=== PATIENT | female | born 1960 | race Two or more races ===

== ENCOUNTER 2022-08-07 18:46 | Emergency (ER) | payer MEDICAID ==
[~2022-08-07] VITALS: Ht 160 cm; Wt 84.0 kg
[2022-08-07 19:33] LABS: Basophils # (auto) 0.1 10 ^3/uL (0-0.2); Eosinophils # (auto) 0.1 10 ^3/uL (0-0.8); Eosinophils % (auto) 1.4 % (0.0-7.0); Lymphocytes # (auto) 2.4 10 ^3/uL (0.4-5.4); Lymphocytes % (auto) 24.4 % (10.0-50.0); Mean Corpuscular Hemoglobin 27.4 pg (28.0-32.0); Mean Corpuscular Hgb Conc. 33.2 g/dL (32.0-36.0); Mean Corpuscular Volume 82.5 fL (80.0-100.0); Monocytes # (auto) 0.6 10 ^3/uL (0-1.3); Neutrophils # (auto) 6.7 10 ^3/uL (1.6-8.6); Neutrophils % (auto) 67.2 % (37.0-80.0); Red Blood Cells 4.73 10^6/uL (4.0-5.20); Red Cell Distribution Width 14.7 % (11.8-14.3)
[2022-08-07 19:51] LABS: Calcium 8.8 mg/dL (8.5-10.1); Potassium 3.6 mmol/L (3.5-5.1)
[2022-08-07 19:55] LABS: Bilirubin, Total 0.3 mg/dL (0.2-1.0); Total Protein 7.4 g/dL (6.4-8.2)
[2022-08-07 20:26] LABS: Urine Bacteria NONE SEEN /hpf (None Seen); Urine Blood TRACE /uL (Negative); Urine Mucus FEW (None Seen); Urine Specific Gravity 1.007 (1.001-1.035); Urine WBC <1 /hpf (0 - 5)
[2022-08-07] MEDS ORDERED: BACL10TA PO (22:38)
[2022-08-07] MEDS ORDERED: IBUP-1454 PO (22:38)
[2022-08-07 23:17] VITALS: BP 105/53
== END 2022-08-07 23:22 | disposition home or self-care (01) ==
LOC: ER 18:50
DX: R07.89 Other chest pain (principal); M62.838 Other muscle spasm
CPT/HCPCS: 36415; 71045; 80053; 81001; 83605; 83690; 84484; 85025; 85379; 93005; 93970

== ENCOUNTER 2022-11-01 23:58 | Emergency (ER) | payer MEDICAID ==
[~2022-11-01] VITALS: Ht 160 cm; Wt 78.0 kg
[~2022-11-01 23:58] MED LIST: BACL10TA PO; IBUP-1454 PO
[2022-11-02 00:05] VITALS: BP 137/80; RESP 18; O2SAT 97
[2022-11-02 00:42] LABS: Basophils # (auto) 0.1 10 ^3/uL (0-0.2); Basophils % (auto) 1.3 % (0.0-2.0); Eosinophils # (auto) 0 10 ^3/uL (0-0.8); Eosinophils % (auto) 0.1 % (0.0-7.0); Hematocrit 37.5 % (36.0-46.0); Hemoglobin 12.3 g/dL (12.2-16.2); Lymphocytes # (auto) 1.2 10 ^3/uL (0.4-5.4); Lymphocytes % (auto) 26.5 % (10.0-50.0); Mean Corpuscular Hgb Conc. 32.7 g/dL (32.0-36.0); Mean Corpuscular Volume 82.6 fL (80.0-100.0); Monocytes # (auto) 0.6 10 ^3/uL (0-1.3); Monocytes % (auto) 13.8 % (0.0-12.0); Neutrophils # (auto) 2.6 10 ^3/uL (1.6-8.6); Neutrophils % (auto) 58.3 % (37.0-80.0); Nucleated Red Blood Cells % 0.1 %; Red Blood Cells 4.54 10^6/uL (4.0-5.20); Red Cell Distribution Width 14.9 % (11.8-14.3); White Blood Cell 4.4 10^3/uL (4.4-10.8)
[2022-11-02 00:47] VITALS: PULSE 77
[2022-11-02 00:57] LABS: Alanine Aminotransferase 12 U/L (7-40); Albumin 4.6 g/dL (3.2-4.8); Alkaline Phosphatase 73 U/L (46-116); Aspartate Aminotransferase 19 U/L (13-40); BUN/Creatinine Ratio 10.8 (10.0-20.0); Blood Urea Nitrogen 7 mg/dL (9-23); Calcium 9.3 mg/dL (8.7-10.4); Chloride 95 mmol/L (98-107); Glucose 106 mg/dL (74-106); Magnesium 1.6 mg/dL (1.6-2.6); Potassium 3.5 mmol/L (3.5-5.1); Sodium 127 mmol/L (136-145)
[2022-11-02 00:58] LABS: Bilirubin, Total 0.5 mg/dL (0.2-1.0); Total Protein 7.4 g/dL (5.7-8.2)
[2022-11-02 01:45] LABS: COVID19 ANTIGEN SOFIA FIA POSITIVE (NEGATIVE)
== END 2022-11-02 04:14 | disposition home or self-care (01) ==
LOC: ER 23:58
DX: U07.1 COVID-19 (principal); R06.02 Shortness of breath; Z79.899 Other long term (current) drug therapy
CPT/HCPCS: 36415; 71046; 80053; 83735; 83880; 84484; 85025; 87426; 93005

== ENCOUNTER 2022-12-27 17:21 | Emergency (ER) | payer MEDICAID ==
[~2022-12-27] VITALS: Ht 160 cm; Wt 80.5 kg
[2022-12-27 18:50] LABS: Urine Bacteria FEW /hpf (None Seen); Urine Blood Negative /uL (Negative); Urine Clarity Clear (Clear); Urine Color Colorless (Yellow); Urine Protein, UAD Negative (Negative); Urine Specific Gravity 1.006 (1.001-1.035); Urine Urobilinogen Normal (Negative); Urine WBC 5 /hpf (0 - 5)
[2022-12-27 18:52] LABS: Basophils # (auto) 0.1 10 ^3/uL (0-0.2); Basophils % (auto) 0.8 % (0.0-2.0); Eosinophils # (auto) 0.2 10 ^3/uL (0-0.8); Eosinophils % (auto) 2.5 % (0.0-7.0); Hemoglobin 13.3 g/dL (12.2-16.2); Lymphocytes # (auto) 2.9 10 ^3/uL (0.4-5.4); Lymphocytes % (auto) 34.3 % (10.0-50.0); Mean Corpuscular Hemoglobin 27.4 pg (28.0-32.0); Mean Corpuscular Hgb Conc. 32.4 g/dL (32.0-36.0); Mean Corpuscular Volume 84.5 fL (80.0-100.0); Monocytes # (auto) 0.6 10 ^3/uL (0-1.3); Monocytes % (auto) 6.7 % (0.0-12.0); Neutrophils # (auto) 4.8 10 ^3/uL (1.6-8.6); Neutrophils % (auto) 55.7 % (37.0-80.0); Nucleated Red Blood Cells % 0.1 %; Red Blood Cells 4.85 10^6/uL (4.0-5.20); Red Cell Distribution Width 15.3 % (11.8-14.3); White Blood Cell 8.6 10^3/uL (4.4-10.8)
[2022-12-27 19:07] LABS: Alanine Aminotransferase 12 U/L (7-40); Albumin 4.5 g/dL (3.2-4.8); Alkaline Phosphatase 89 U/L (46-116); Anion Gap 8 (5-15); Aspartate Aminotransferase 10 U/L (13-40); BUN/Creatinine Ratio 19.7 (10.0-20.0); Blood Urea Nitrogen 13 mg/dL (9-23); Carbon Dioxide 26 mmol/L (20-30); Chloride 104 mmol/L (98-107); Glucose 83 mg/dL (74-106); Potassium 4.2 mmol/L (3.5-5.1); Sodium 138 mmol/L (136-145)
[2022-12-27 19:08] LABS: Bilirubin, Total 0.5 mg/dL (0.2-1.0); Total Protein 7.2 g/dL (5.7-8.2)
[2022-12-27 19:22] LABS: Lipase 50 U/L (12-53)
[2022-12-27] MEDS ORDERED: cefTRIAXone 1GM/50ML D5W 50 ML IV ONE (20:15)
[2022-12-27 21:20] VITALS: BP 113/71; PULSE 80; RESP 18; TEMP 98.1; O2SAT 98
[2022-12-27] MEDS ORDERED: NITR-87 PO (21:46)
== END 2022-12-27 22:05 | disposition home or self-care (01) ==
LOC: ER 17:21
DX: N39.0 Urinary tract infection, site not specified (principal); R10.30 Lower abdominal pain, unspecified; I10 Essential (primary) hypertension; E78.5 Hyperlipidemia, unspecified; Z98.890 Other specified postprocedural states; Z79.1 Long term (current) use of non-steroidal anti-inflammatories (NSAID); Z79.899 Other long term (current) drug therapy
CPT/HCPCS: 36415; 74176; 80053; 81001; 82962; 83605; 83690; 84484; 85025; 93005; 96365; 99285; J0696

== ENCOUNTER 2025-02-19 21:54 | Emergency (ER) | payer MEDICAID ==
[~2025-02-19] VITALS: Ht 160 cm; Wt 81.7 kg
[~2025-02-19 21:54] MED LIST changes: +NITR-87 PO
--- NOTE | 2025-02-19 22:22 | ED.PDOC ---
Musculoskeletal HPI Comments 64y F who presents to the ED for chief complaint of right lower extremity pain - pt states she has been having R knee pain and has varicose veins by the R knee - pt states she started to have pain and skin discoloration by her R knee earlier this afternoon at approx 1300 - pt states she was at urgent care today and referred to the ED to rule out DVT - pt in the ED, denies chest pain, shortness of breath, fever, chills, or any associated symptoms - pt otherwise has history of lymphedema and phlebitis - pt otherwise has stable vitals in the ED past medical history: LYMPHEDEMA, VARICOSE VEINS, PHLEBITIS past surgical history: denies medications: denies allergies: denies social history: denies ETOH use, denies drug use, denies tobacco use HPI: Poor Historian. REVIEW OF SYSTEMS: CONSTITUTIONAL: Denies acute: fever, diaphoresis, chills, generalized weakness. HEAD: Denies acute: headache, photophobia Eyes: Denies acute: Double vision, vision loss, eye pain, eye discharge. EARS: Denies acute: tinnitus, hearing loss, ear discharge, ear pain, THROAT: Denies acute: sore throat, swelling, difficulty swallowing , pain with swallowing, change in voice. NECK: Denies acute: neck pain, neck swelling, stiff neck. HEART: Denies acute : chest pain, palpitations, LUNGS: Denies acute: SOB, wheezing, cough, hemoptysis ABDOMEN: Denies acute: abdominal pain, Nausea, Vomiting, diarrhea, melena , hematemesis, hematochezia SKIN: Denies acute: rash, redness, lesions, itchiness. EXTREMITIES: Denies acute: calf pain, numbness, tingling, weakness, Denies acute: Low back pain. Neuro: Denies acute: focal neurological deficit, motor or sensory focal neurological deficit, tremors, seizure like activity, confusion, dizziness, change in mental status, loss of bowel or bladder function, cauda equina like symptoms. : Denies acute: dysuria, hematuria, flank pain, increase in urinary frequency. PSYCH: Denies acute: hallucination, suicidal ideation, homicidal ideation. FEMALE: Denies acute: abnormal vaginal bleeding, foul odor, unusual discharge. PHYSICAL EXAM: General: ----no----acute distress, awake and alert. Head: normocephalic, atraumatic. No raccoon's eyes, no frederick sign. Neck: supple, trachea is midline, no swelling. Throat: Normal phonation. Eyes:, no erythema, no purulent discharge, no proptosis, no icterus. Heart: regular rate, regular rhythm, no significant murmur appreciated. Lungs: no apparent respiratory distress, Able to speak in full sentences. No wheezing, no rhonchi, no crackles. No stridors Clear to auscultation bilaterally. Abdomen: non tender to palpation, non distended, soft, no guarding, no rebound, + bowel sounds. Neuro: Awake, Alert, oriented to name, self, situation, follows commands GCS=15. Speech is normal. Skin: no petechia, no purpura, no cyanosis, non-pale, not jaundice. Lower extremities: --no - Pitting edema no deformity, no focal swelling, no calf TTP. Noted bilateral varicose veins. Evaluation of the area of complaint. Noted right anterior knee focal area of bruising/minimal hematoma of a varicose vein that is slightly tender to palpation with minimal swelling. Patient is neurovascularly intact in the affected extremity. Sensory and motor are present. Pedal pulses palpable. Makes eye contact. moves all four extremities. Face: no apparent facial droop. Ambulating in the ED independently. Pedal pulses are palpable. ED COURSE: DISCLAIMER: This medical document was created using an electronic medical record system with voice recognition software and computerized dictation system. Although this document has been carefully reviewed, there might still be some phonetic and typographical errors. Occasional wrong-word or "sound-alike" substitutions may have occurred due to the inherent limitations of voice recognition software. These areas are purely typographical due to imperfections of the software programs and do not reflect any compromise in the patient's medical care. Please read the chart carefully and recognize, using context, where these substitutions have occurred. Chief Complaint: Lower Extremity Time Seen by MD: 22:21 Primary Care Provider: JANE Reviewed Notes: Medications, Allergies Allergies: Coded Allergies: NO KNOWN ALLERGIES (Unverified , 08/07/22) Home Meds Active Scripts Nitrofurantoin Monohydrate Mac (Macrobid) 100 Mg Cap, 100 MG PO BID for 7 Days, #14 CAP Prov:NIA HYMAN DO 12/27/22 Ibuprofen (Ibuprofen) 600 Mg Tab, 1 TAB PO TID PRN, #30 TAB Prov:CLAYTON DIASMADDISON Cecilio OPERATING TABLE ASSEMBLER 08/07/22 Baclofen (Baclofen) 10 Mg Tab, 10 MG PO TID PRN, #30 TAB Prov:EUGENIOCarmelaPAPO 08/07/22 Information Source: Patient Mode of Arrival: Ambulatory Brought in by: self Location: Right Past Medical History PAST MEDICAL HISTORY: Denies Surgical History: Denies all 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 Was a procedure done?: No X-Ray, Labs, Meds, VS Vital Signs Date Time Temp Pulse Resp B/P (MAP) Pulse Ox O2 Delivery O2 Flow Rate FiO2 02/19/25 21:57 97.4 85 16 132/84 95 97.4 X-Ray, Labs, Meds, VS Comment [place] [address] Ph: [phone] DIAGNOSTIC IMAGING Diagnostic Imaging Report : [id number] Signed PATIENT: TREMAYNE VELARDE ACCT: [id number] UNIT: [id number] : 1960 LOC: ER ROOM / BED: / AGE / SEX: 64 / F ADM STATUS: REG ER SERVICE 2211 ORDERING PHYSICIAN: NIA HYMAN DO PROCEDURE(s): RKN3 - R KNEE 3V XRAY REASON: knee pain ORDER NUMBER(s): [id number], ACCESSION NUMBER(s): [id number] XY R KNEE 3V XRAY COMPARISON: None INDICATION: knee pain FINDINGS/IMPRESSION: No acute fracture or dislocation. No significant joint effusion. ATED BY: NHI STOVER MD DICTATED DATE/TIME: 02/19/252253 SIGNED BY: NHI STOVER MD SIGNED DATE/TIME: 02/19/252253 CC: [place] [id number] Ph: [phone] DIAGNOSTIC IMAGING Diagnostic Imaging Report : [id number] Signed PATIENT: TREMAYNE VELARDE ACCT: [id number] UNIT: [id number] : 1960 LOC: ER ROOM / BED: / AGE / SEX: 64 / F ADM STATUS: REG ER SERVICE 10 ORDERING PHYSICIAN: NIA HYMAN DO PROCEDURE(s): RLDVT - RT Lower DVT REASON: r knee vericose bruise ORDER NUMBER(s): [id number], ACCESSION NUMBER(s): [id number] US RT Lower DVT HISTORY: r knee vericose bruise COMPARISON: US BILAT LOWER DVT on DOS: 08/07/22 TECHNIQUE: Realtime grayscale, color flow, and Doppler ultrasound images of the deep venous structures with spectral waveform analysis were obtained. Doppler spectral waveform analysis of the right lower extremity veins was performed. FINDINGS: Right Lower Extremity: Right common femoral vein: Normal compressibility and flow. Right femoral vein: Normal compressibility and flow. Right popliteal vein: Normal compressibility and flow. IMPRESSION: NO SONOGRAPHIC EVIDENCE FOR DEEP VENOUS THROMBOSIS IN THE right LOWER EXTREMITY VEINS. ATED BY: NHI STOVER MD DICTATED DATE/TIME: 02/19/252251 SIGNED BY: NHI STOVER MD SIGNED DATE/TIME: 02/19/252251 CC: Time of 1ST Reevaluation: 23:00 Reevaluation 1ST: Unchanged Patient Education/Counseling: Diagnosis, Treatment Family Education/Counseling: No Family Present Comments Departure 1 Departure Time of Disposition: 22:41 Impression: Primary Impression: Varicose vein of leg Additional Impression: Contusion of knee, right Disposition: 01 HOME / SELF CARE / HOMELESS Condition: Stable Additional Instructions: Additional instructions: Please read all instructions provided in this packet carefully. You MUST follow-up with your primary care/family doctor in 1 to 2 days. If you are unable to see your primary care/family doctor, please return to our emergency room for re-assessment and re-evaluation in 1 to 2 days. Return to the emergency room here in our facility or to the nearest ER [facility] if your symptoms change or worsen. CONSULTATIONS: you MUST Follow-up for consultation as soon as possible with: -vascular medicine and vascular surgery in 1-2 days. Please call for appointment. You MUST call the consultants office yourself to make an appointment. You may need to arrange that through your insurance and/or your primary/family doctor. If you are unable to see the performance improvement consultant in 1 to 2 days, you must return to our emergency room (or any other ER of your choice) for re-assessment and re-evalu ation. Adequate fluid hydration. Although you have been discharged from the Emergency Department, this does not mean that you have a "clean bill of health". No definitive diagnosis for your symptoms has been made today. It is possible that you are in the process of developing a serious illness. This is why you must return to the ED without fail if any new or worsening symptoms develop. Below is a copy of your radiological report for follow up: [place] [address] Ph: [phone] DIAGNOSTIC IMAGING Diagnostic Imaging Report : [id number] Signed PATIENT: TREMAYNE VELARDE ACCT: [id number] UNIT: [id number] : 1960 LOC: ER ROOM / BED: / AGE / SEX: 64 / F ADM STATUS: REG ER SERVICE ORDERING PHYSICIAN: NIA HYMAN DO PROCEDURE(s): RKN3 - R KNEE 3V XRAY REASON: knee pain ORDER NUMBER(s): [id number], ACCESSION NUMBER(s): [id number] XY R KNEE 3V XRAY COMPARISON: None INDICATION: knee pain FINDINGS/IMPRESSION: No acute fracture or dislocation. No significant joint effusion. ATED BY: NHI STOVER MD DICTATED DATE/TIME: 02/19/252253 SIGNED BY: NHI STOVER MD SIGNED DATE/TIME: 02/19/252253 CC: [place] [id number] Ph: [phone] DIAGNOSTIC IMAGING Diagnostic Imaging Report : [id number] Signed PATIENT: TREMAYNE VELARDE ACCT: [id number] UNIT: [id number] : 1960 LOC: ER ROOM / BED: / AGE / SEX: 64 / F ADM STATUS: REG ER SERVICE 10 ORDERING PHYSICIAN: NIA HYMAN DO PROCEDURE(s): RLDVT - RT Lower DVT REASON: r knee vericose bruise ORDER NUMBER(s): [id number], ACCESSION NUMBER(s): [id number] US RT Lower DVT HISTORY: r knee vericose bruise COMPARISON: US BILAT LOWER DVT on DOS: 08/07/22 TECHNIQUE: Realtime grayscale, color flow, and Doppler ultrasound images of the deep venous structures with spectral waveform analysis were obtained. Doppler spectral waveform analysis of the right lower extremity veins was performed. FINDINGS: Right Lower Extremity: Right common femoral vein: Normal compressibility and flow. Right femoral vein: Normal compressibility and flow. Right popliteal vein: Normal compressibility and flow. IMPRESSION: NO SONOGRAPHIC EVIDENCE FOR DEEP VENOUS THROMBOSIS IN THE right LOWER EXTREMITY VEINS. ATED BY: NHI STOVER MD DICTATED DATE/TIME: 02/19/252251 SIGNED BY: NHI STOVER MD SIGNED DATE/TIME: 02/19/252251 CC: Discharged With: Self Critical Care Note Critical Care Time?: No I personally scribed for NIA HYMAN DO ([email or web address]) on 02/19/25 at 22:22. Electronically submitted by Esperanza LEHMAN). NIA HYMAN DO Feb 19, 2025 22:22
--- NOTE | 2025-02-19 22:55 | DVH ---
US RT Lower DVT HISTORY: r knee vericose bruise COMPARISON: US BILAT LOWER DVT on DOS: 08/07/22 TECHNIQUE: Realtime grayscale, color flow, and Doppler ultrasound images of the deep venous structures with spectral waveform analysis were obtained. Doppler spectral waveform analysis of the right lower extremity veins was performed. FINDINGS: Right Lower Extremity: Right common femoral vein: Normal compressibility and flow. Right femoral vein: Normal compressibility and flow. Right popliteal vein: Normal compressibility and flow. IMPRESSION: NO SONOGRAPHIC EVIDENCE FOR DEEP VENOUS THROMBOSIS IN THE right LOWER EXTREMITY VEINS.
--- NOTE | 2025-02-19 22:56 | DVH ---
XY R KNEE 3V XRAY COMPARISON: None INDICATION: knee pain FINDINGS/IMPRESSION: No acute fracture or dislocation. No significant joint effusion.
[2025-02-20 00:10] VITALS: BP 154/96; PULSE 74; RESP 16; TEMP 97.9; O2SAT 97
== END 2025-02-20 00:21 | disposition home or self-care (01) ==
LOC: ER 21:54
DX: S80.01XA Contusion of right knee, initial encounter (principal); I83.90 Asymptomatic varicose veins of unspecified lower extremity; X58.XXXA Exposure to other specified factors, initial encounter; Y93.89 Activity, other specified; Y92.89 Other specified places as the place of occurrence of the external cause; Y99.8 Other external cause status
CPT/HCPCS: 73562; 93971